=== PATIENT | female | born 1935 | race Hispanic/Latino ===

== ENCOUNTER 2022-09-27 10:54 | Emergency (ER) | payer MEDICARE ==
[~2022-09-27] VITALS: Ht 154.9 cm; Wt 55.8 kg
[2022-09-27] MEDS ORDERED: ALTOPREV40 MG PO (11:29)
[2022-09-27] MEDS ORDERED: METFORMIN HCL500 M1 PO (11:29)
[2022-09-27] MEDS ORDERED: FERROUS FUMARA324 MG PO (11:29)
[2022-09-27] MEDS ORDERED: JANUVIA25 MG PO (11:29)
[2022-09-27] MEDS ORDERED: METOPROLOL SUCC25 MG PO (11:29)
[2022-09-27] MEDS ORDERED: ZESTRIL10 MG PO (11:29)
[2022-09-27] MEDS ORDERED: MAGNESIUM OXID400 MG PO (11:29)
[2022-09-27] MEDS ORDERED: PROTONIX20 MG PO (11:29)
[2022-09-27] MEDS ORDERED: ASPIRIN EC81 MG PO (11:29)
[2022-09-27] MEDS ORDERED: ACETAMINOPHEN 325 MG TAB ONE (12:08)
[2022-09-27] MEDS ORDERED: ACETAMINOPHEN 325 MG TAB PO ONE ×2 (12:15→13:00)
[2022-09-27] MEDS ORDERED: CEFUROXIME500 MG PO (12:43)
== END 2022-09-27 13:52 | disposition home or self-care (01) ==
LOC: FSED 10:57
DX: S00.83XA Contusion of other part of head, initial encounter (principal); S20.212A Contusion of left front wall of thorax, initial encounter; S70.01XA Contusion of right hip, initial encounter; W01.0XXA Fall on same level from slipping, tripping and stumbling without subsequent striking against object, initial encounter; Y92.89 Other specified places as the place of occurrence of the external cause; N39.0 Urinary tract infection, site not specified; I10 Essential (primary) hypertension; E11.9 Type 2 diabetes mellitus without complications; E78.5 Hyperlipidemia, unspecified
CPT/HCPCS: 70450; 71250; 72125; 81003; 87086; 99284